=== PATIENT | female | born 1990 | race African-American/Black ===

== ENCOUNTER 2020-10-18 12:07 | Inpatient (IN) | payer MEDICAID, OTHER ==
[~2020-10-18] VITALS: Ht 167.6 cm; Wt 121.8 kg
[2020-10-18 13:22] LABS: BASOPHILS % (AUTO) 0.5 % (0.0-2.0); EOSINOPHILS % (AUTO) 0.8 % (1.0-6.0); HEMATOCRIT 35.3 % (36-46); HEMOGLOBIN 11.8 g/dL (12.0-16.0); LYMPHOCYTES # (AUTO) 1.6 K/uL (1.0-4.8); LYMPHOCYTES % (AUTO) 22.7 % (22.0-44.0); MEAN CORPUSCULAR HEMOGLOBIN 30.9 pg (26.0-34.0); MEAN CORPUSCULAR HGB CONC 33.6 G/dL (31.0-37.0); MEAN CORPUSCULAR VOLUME 92 fL (80-100); MONOCYTES # (AUTO) 0.7 K/uL (0.1-1.0); MONOCYTES % (AUTO) 9.1 % (2.0-9.0); NEUTROPHILS # (AUTO) 4.8 K/uL (1.8-7.7); NEUTROPHILS % (AUTO) 66.9 % (40.0-70.0); PLATELET COUNT (AUTO) 356 K/uL (150-450); RED BLOOD CELL COUNT(AUTO) 3.84 MIL/uL (4.00-5.20); RED CELL DISTRIBUTION WIDTH 13.7 % (11.5-14.5)
[2020-10-18] MEDS ORDERED: ALBU8HFA IH (13:22)
[2020-10-18] MEDS ORDERED: SERT50TA12 PO (13:22)
[2020-10-18] MEDS ORDERED: OXCA300T57 PO (13:22)
[2020-10-18] MEDS ORDERED: METF-960 PO (13:22)
[2020-10-18] MEDS ORDERED: ZIPR40CA2 PO (13:22)
[2020-10-18] MEDS ORDERED: ACET325S20 PR (13:22)
[2020-10-18 13:30] LABS: ANION GAP 9 mmol/L (8-16); CALCIUM, TOTAL 9.3 mg/dL (8.8-10.5); CARBON DIOXIDE 27 mmol/L (22-29); CHLORIDE 100 mmol/L (98-107); CREATININE 0.77 mg/dL (0.60-1.30); GLOMERULAR FILTR. RATE CALC > 60 mL/min (>60); GLUCOSE,RANDOM 96 mg/dL (70-110); POTASSIUM 3.6 mmol/L (3.5-5.1); SODIUM SERUM 136 mmol/L (136-145); UREA NITROGEN, BLOOD 9 mg/dL (7-18)
[2020-10-18 13:36] LABS: ALANINE AMINOTRANSFERASE 74 U/L (12-78); ALBUMIN 3.9 g/dL (3.4-5.0); ALKALINE PHOSPHATASE 70 U/L (46-116); ASPARTATE AMINOTRANSFERASE 28 U/L (15-37); BILIRUBIN,TOTAL 0.4 mg/dL (0.1-1.0); TOTAL PROTEIN, SERUM 7.6 g/dL (6.4-8.2)
[2020-10-18 13:54] LABS: HCG,QUANTITATIVE 1 mIU/mL (0-6)
[2020-10-18] MEDS ORDERED: HALOPERIDOL LACTATE 5 MG/ML VIAL IM ONE (14:30)
[2020-10-18] MEDS ORDERED: LORazepam 2 MG/ML VIAL IM ONE (14:30)
[2020-10-18] MEDS ORDERED: DiphenhydrAMINE HCL 50 MG/ML VIAL IM ONE (14:30)
[2020-10-18] MEDS ORDERED: ACETAMINOPHEN 325 MG TABLET PO PRN ×2 (15:00→15:15)
[2020-10-18] MEDS ORDERED: ONDANSETRON HCL 4 MG/2 ML VIAL IVP PRN ×2 (15:00→15:15)
[2020-10-18] MEDS ORDERED: 0.9% SODIUM CHLORIDE 10 ML SYRINGE IVP PRN ×2 (15:00→15:15)
[2020-10-18] MEDS ORDERED: DEXTROSE 50%-WATER 25 GM/50 ML SYRINGE IVP PRN (15:15)
[2020-10-18] MEDS ORDERED: MAGNESIUM HYDROXIDE SUSPENSION 30 ML UDCUP PO PRN (15:15)
[2020-10-18] MEDS ORDERED: ALBUTEROL SULFATE 2.5 MG/0.5 ML NEB SOLUTION NEB PRN (15:15)
[2020-10-18] MEDS: PANTOPRAZOLE SODIUM 40 MG DR TABLET PO SCH (15:15)
[2020-10-18] MEDS ORDERED: BISACODYL 10 MG RECTAL RECTAL SUPPOSITORY PR PRN (15:15)
[2020-10-18] MEDS ORDERED: IPRATROPIUM BROMIDE 0.5 MG/2.5 ML NEB SOLUTION NEB PRN (15:15)
[2020-10-18] MEDS ORDERED: INSULIN LISPRO 100 UNITS/ML SQ PRN (15:15)
[2020-10-18 17:15] VITALS: BP 114/73
[2020-10-18 18:07] LABS: GLUCOMETER DEV NAME(LOC) 6N.2; GLUCOSE,POINT OF CARE 86 MG/DL (70-110)
[2020-10-19 05:02] VITALS: BP 124/66
[2020-10-19 07:33] LABS: BASOPHILS % (AUTO) 0.6 % (0.0-2.0); EOSINOPHILS % (AUTO) 2.7 % (1.0-6.0); HEMATOCRIT 35.1 % (36-46); HEMOGLOBIN 11.7 g/dL (12.0-16.0); LYMPHOCYTES # (AUTO) 2.2 K/uL (1.0-4.8); LYMPHOCYTES % (AUTO) 35.9 % (22.0-44.0); MEAN CORPUSCULAR HEMOGLOBIN 31.1 pg (26.0-34.0); MEAN CORPUSCULAR HGB CONC 33.4 G/dL (31.0-37.0); MEAN CORPUSCULAR VOLUME 93 fL (80-100); MONOCYTES # (AUTO) 0.6 K/uL (0.1-1.0); MONOCYTES % (AUTO) 10.1 % (2.0-9.0); NEUTROPHILS # (AUTO) 3.1 K/uL (1.8-7.7); NEUTROPHILS % (AUTO) 50.7 % (40.0-70.0); PLATELET COUNT (AUTO) 349 K/uL (150-450); RED BLOOD CELL COUNT(AUTO) 3.77 MIL/uL (4.00-5.20)
[2020-10-19 07:47] LABS: GLUCOMETER DEV NAME(LOC) 6S.1; GLUCOSE,POINT OF CARE 73 MG/DL (70-110)
[2020-10-19 07:54] LABS: ANION GAP 9 mmol/L (8-16); CALCIUM, TOTAL 8.8 mg/dL (8.8-10.5); CARBON DIOXIDE 27 mmol/L (22-29); CHLORIDE 102 mmol/L (98-107); CREATININE 0.56 mg/dL (0.60-1.30); GLOMERULAR FILTR. RATE CALC > 60 mL/min (>60); GLUCOSE,RANDOM 76 mg/dL (70-110); POTASSIUM 3.8 mmol/L (3.5-5.1); SODIUM SERUM 138 mmol/L (136-145); UREA NITROGEN, BLOOD 8 mg/dL (7-18)
[2020-10-19 08:27] VITALS: BP 113/57
[2020-10-19] MEDS: PANTOPRAZOLE SODIUM 40 MG DR TABLET PO SCH (08:38)
[2020-10-19 13:06] LABS: GLUCOMETER DEV NAME(LOC) 6S.1; GLUCOSE,POINT OF CARE 76 MG/DL (70-110)
[2020-10-19] MEDS: SERTRALINE HCL 50 MG TABLET PO SCH (15:03)
[2020-10-19] MEDS: OXcarbazepine 300 MG TABLET PO SCH ×2 (15:03→19:59)
[2020-10-19] MEDS: ZIPRASIDONE HCL 40 MG CAPSULE PO SCH (17:35)
[2020-10-19 19:44] VITALS: BP 122/73
[2020-10-19 20:49] LABS: GLUCOMETER DEV NAME(LOC) 6N.2; GLUCOSE,POINT OF CARE 99 MG/DL (70-110)
[2020-10-20 04:45] VITALS: BP 115/60
[2020-10-20 07:26] LABS: GLUCOMETER DEV NAME(LOC) 6S.1; GLUCOSE,POINT OF CARE 91 MG/DL (70-110)
[2020-10-20] MEDS: SERTRALINE HCL 50 MG TABLET PO SCH (08:07)
[2020-10-20] MEDS: ZIPRASIDONE HCL 40 MG CAPSULE PO SCH (08:07)
[2020-10-20] MEDS: OXcarbazepine 300 MG TABLET PO SCH ×2 (08:07→19:38)
[2020-10-20] MEDS: PANTOPRAZOLE SODIUM 40 MG DR TABLET PO SCH (08:07)
[2020-10-20 08:12] VITALS: BP 141/82
[2020-10-20 11:48] LABS: GLUCOMETER DEV NAME(LOC) 6S.1; GLUCOSE,POINT OF CARE 84 MG/DL (70-110)
[2020-10-20 16:03] VITALS: BP 131/86
[2020-10-20 17:07] LABS: GLUCOMETER DEV NAME(LOC) 6S.1; GLUCOSE,POINT OF CARE 98 MG/DL (70-110)
[2020-10-20 19:28] VITALS: BP 119/58
[2020-10-20] MEDS: RisperiDONE 3 MG TABLET PO SCH (19:38)
[2020-10-21 05:43] VITALS: BP 115/58
[2020-10-21 07:17] LABS: GLUCOMETER DEV NAME(LOC) 6S.1; GLUCOSE,POINT OF CARE 114 MG/DL (70-110)
[2020-10-21 07:17] LABS: GLUCOMETER DEV NAME(LOC) 6S.1; GLUCOSE,POINT OF CARE 94 MG/DL (70-110)
[2020-10-21 07:23] VITALS: BP 122/70
[2020-10-21] MEDS: RisperiDONE 3 MG TABLET PO SCH ×2 (08:07→19:54)
[2020-10-21] MEDS: OXcarbazepine 300 MG TABLET PO SCH ×2 (08:07→19:54)
[2020-10-21] MEDS: SERTRALINE HCL 50 MG TABLET PO SCH (08:07)
[2020-10-21] MEDS: PANTOPRAZOLE SODIUM 40 MG DR TABLET PO SCH (08:07)
[2020-10-21 15:16] VITALS: BP 124/64
[2020-10-21 19:58] VITALS: BP 117/62
[2020-10-21 20:15] LABS: GLUCOMETER DEV NAME(LOC) 6S.1; GLUCOSE,POINT OF CARE 101 MG/DL (70-110)
[2020-10-21 20:15] LABS: GLUCOMETER DEV NAME(LOC) 6S.1; GLUCOSE,POINT OF CARE 90 MG/DL (70-110)
[2020-10-21 21:00] VITALS: BP 123/70
[2020-10-22 07:27] VITALS: BP 114/61
[2020-10-22] MEDS: SERTRALINE HCL 50 MG TABLET PO SCH (07:54)
[2020-10-22] MEDS: RisperiDONE 3 MG TABLET PO SCH ×2 (07:54→20:32)
[2020-10-22] MEDS: OXcarbazepine 300 MG TABLET PO SCH ×2 (07:54→20:32)
[2020-10-22] MEDS: PANTOPRAZOLE SODIUM 40 MG DR TABLET PO SCH (07:54)
[2020-10-22 15:03] VITALS: BP 122/64
[2020-10-22 19:06] VITALS: BP 128/78
[2020-10-23 05:56] VITALS: BP 120/76
[2020-10-23 07:24] VITALS: BP 124/72
[2020-10-23] MEDS: PANTOPRAZOLE SODIUM 40 MG DR TABLET PO SCH (08:24)
[2020-10-23] MEDS: SERTRALINE HCL 50 MG TABLET PO SCH (08:24)
[2020-10-23] MEDS: OXcarbazepine 300 MG TABLET PO SCH ×2 (08:24→20:29)
[2020-10-23] MEDS: RisperiDONE 3 MG TABLET PO SCH ×2 (08:24→20:29)
[2020-10-23 15:02] VITALS: BP 128/74
[2020-10-23 19:05] VITALS: BP 120/74
[2020-10-24] MEDS: SERTRALINE HCL 50 MG TABLET PO SCH (08:18)
[2020-10-24] MEDS: OXcarbazepine 300 MG TABLET PO SCH ×2 (08:18→20:12)
[2020-10-24] MEDS: RisperiDONE 3 MG TABLET PO SCH ×2 (08:18→20:12)
[2020-10-24] MEDS: PANTOPRAZOLE SODIUM 40 MG DR TABLET PO SCH (08:19)
[2020-10-24 08:20] VITALS: BP 144/76
[2020-10-24] MEDS: DOCUSATE SODIUM 100 MG CAPSULE PO PRN (08:27)
[2020-10-24 19:34] VITALS: BP 101/71
[2020-10-25 05:29] VITALS: BP 137/79
[2020-10-25 07:27] VITALS: BP 130/73
[2020-10-25] MEDS: RisperiDONE 3 MG TABLET PO SCH ×2 (08:06→19:49)
[2020-10-25] MEDS: PANTOPRAZOLE SODIUM 40 MG DR TABLET PO SCH (08:06)
[2020-10-25] MEDS: SERTRALINE HCL 50 MG TABLET PO SCH (08:06)
[2020-10-25] MEDS: OXcarbazepine 300 MG TABLET PO SCH ×2 (08:06→19:49)
[2020-10-25 15:56] VITALS: BP 128/76
[2020-10-25 19:41] VITALS: BP 108/76
[2020-10-26 05:28] VITALS: BP 96/51
[2020-10-26] MEDS: RisperiDONE 3 MG TABLET PO SCH ×2 (08:33→20:04)
[2020-10-26] MEDS: PANTOPRAZOLE SODIUM 40 MG DR TABLET PO SCH (08:33)
[2020-10-26] MEDS: OXcarbazepine 300 MG TABLET PO SCH ×2 (08:33→20:04)
[2020-10-26] MEDS: SERTRALINE HCL 50 MG TABLET PO SCH (08:33)
[2020-10-26 16:01] VITALS: BP 126/77
[2020-10-26 20:05] VITALS: BP 95/51
[2020-10-27 04:45] VITALS: BP 115/72
[2020-10-27 07:16] VITALS: BP 98/51
[2020-10-27] MEDS: RisperiDONE 3 MG TABLET PO SCH ×2 (08:05→19:43)
[2020-10-27] MEDS: OXcarbazepine 300 MG TABLET PO SCH ×2 (08:05→19:42)
[2020-10-27] MEDS: SERTRALINE HCL 50 MG TABLET PO SCH (08:05)
[2020-10-27] MEDS: PANTOPRAZOLE SODIUM 40 MG DR TABLET PO SCH (08:05)
[2020-10-27 19:29] VITALS: BP 110/58
[2020-10-28 03:07] VITALS: BP 101/52
[2020-10-28] MEDS: RisperiDONE 3 MG TABLET PO SCH ×2 (09:12→20:10)
[2020-10-28] MEDS: PANTOPRAZOLE SODIUM 40 MG DR TABLET PO SCH (09:12)
[2020-10-28] MEDS: SERTRALINE HCL 50 MG TABLET PO SCH (09:12)
[2020-10-28] MEDS: OXcarbazepine 300 MG TABLET PO SCH ×2 (09:12→20:10)
[2020-10-28 20:01] VITALS: BP 101/56
[2020-10-28] MEDS ORDERED: LORazepam 0.5 MG TABLET PO ONE (23:15)
[2020-10-29 05:27] VITALS: BP 132/79
[2020-10-29 08:20] VITALS: BP 106/61
[2020-10-29] MEDS: SERTRALINE HCL 50 MG TABLET PO SCH (08:48)
[2020-10-29] MEDS: RisperiDONE 3 MG TABLET PO SCH ×2 (08:48→21:09)
[2020-10-29] MEDS: PANTOPRAZOLE SODIUM 40 MG DR TABLET PO SCH (08:48)
[2020-10-29] MEDS: OXcarbazepine 300 MG TABLET PO SCH ×2 (08:48→21:09)
[2020-10-29 20:47] VITALS: BP 135/82
[2020-10-30 07:27] VITALS: BP 119/63
[2020-10-30] MEDS: SERTRALINE HCL 50 MG TABLET PO SCH (09:12)
[2020-10-30] MEDS: OXcarbazepine 300 MG TABLET PO SCH ×2 (09:12→21:02)
[2020-10-30] MEDS: PANTOPRAZOLE SODIUM 40 MG DR TABLET PO SCH (09:12)
[2020-10-30] MEDS: RisperiDONE 3 MG TABLET PO SCH ×2 (09:13→21:02)
[2020-10-30] MEDS: ChlorproMAZINE HCL 50 MG TABLET PO SCH ×2 (11:26→21:02)
[2020-10-30 19:25] VITALS: BP 109/50
[2020-10-31 05:05] VITALS: BP 106/63
[2020-10-31] MEDS: SERTRALINE HCL 50 MG TABLET PO SCH (08:29)
[2020-10-31] MEDS: OXcarbazepine 300 MG TABLET PO SCH ×2 (08:29→20:24)
[2020-10-31] MEDS: ChlorproMAZINE HCL 50 MG TABLET PO SCH ×2 (08:29→20:24)
[2020-10-31] MEDS: PANTOPRAZOLE SODIUM 40 MG DR TABLET PO SCH (08:29)
[2020-10-31] MEDS: RisperiDONE 3 MG TABLET PO SCH ×2 (08:30→20:24)
[2020-10-31 08:47] VITALS: BP 96/47
[2020-10-31 19:39] VITALS: BP 117/68
[2020-10-31] MEDS: DOCUSATE SODIUM 100 MG CAPSULE PO PRN (20:29)
[2020-11-01 05:36] VITALS: BP 121/70
[2020-11-01 07:42] VITALS: BP 96/59
[2020-11-01] MEDS: ChlorproMAZINE HCL 50 MG TABLET PO SCH ×2 (08:38→20:07)
[2020-11-01] MEDS: OXcarbazepine 300 MG TABLET PO SCH ×2 (08:39→20:07)
[2020-11-01] MEDS: RisperiDONE 3 MG TABLET PO SCH ×2 (08:39→20:07)
[2020-11-01] MEDS: PANTOPRAZOLE SODIUM 40 MG DR TABLET PO SCH (08:39)
[2020-11-01] MEDS: SERTRALINE HCL 50 MG TABLET PO SCH (08:39)
[2020-11-01 20:17] VITALS: BP 114/69
[2020-11-02 07:36] VITALS: BP 105/68
[2020-11-02] MEDS: OXcarbazepine 300 MG TABLET PO SCH ×2 (08:18→19:57)
[2020-11-02] MEDS: PANTOPRAZOLE SODIUM 40 MG DR TABLET PO SCH (08:18)
[2020-11-02] MEDS: ChlorproMAZINE HCL 50 MG TABLET PO SCH ×2 (08:18→19:57)
[2020-11-02] MEDS: RisperiDONE 3 MG TABLET PO SCH ×2 (08:18→19:57)
[2020-11-02] MEDS: SERTRALINE HCL 50 MG TABLET PO SCH (08:18)
[2020-11-03 04:00] VITALS: BP 104/66
[2020-11-03 08:04] VITALS: BP 98/61
[2020-11-03] MEDS: RisperiDONE 3 MG TABLET PO SCH ×2 (08:34→19:56)
[2020-11-03] MEDS: ChlorproMAZINE HCL 50 MG TABLET PO SCH ×2 (08:35→19:56)
[2020-11-03] MEDS: PANTOPRAZOLE SODIUM 40 MG DR TABLET PO SCH (08:36)
[2020-11-03] MEDS: OXcarbazepine 300 MG TABLET PO SCH ×2 (08:36→19:56)
[2020-11-03] MEDS: SERTRALINE HCL 50 MG TABLET PO SCH (08:37)
[2020-11-03 15:38] LABS: COVID AG,FIA SOURCE NASOPHARYNGEAL
[2020-11-03 20:10] VITALS: BP 120/56
[2020-11-04 05:32] VITALS: BP 110/65
[2020-11-04] MEDS: OXcarbazepine 300 MG TABLET PO SCH (08:35)
[2020-11-04] MEDS: SERTRALINE HCL 50 MG TABLET PO SCH (08:35)
[2020-11-04] MEDS: RisperiDONE 3 MG TABLET PO SCH (08:35)
[2020-11-04] MEDS: ChlorproMAZINE HCL 50 MG TABLET PO SCH (08:35)
[2020-11-04] MEDS: PANTOPRAZOLE SODIUM 40 MG DR TABLET PO SCH (08:35)
[2020-11-04] MEDS: DOCUSATE SODIUM 100 MG CAPSULE PO PRN (08:51)
[2020-11-04 09:36] VITALS: BP 115/61
[2020-11-04] MEDS ORDERED: CHLO50TA41 PO (12:54)
[2020-11-04] MEDS ORDERED: RISP3TAB35 PO (12:55)
== END 2020-11-04 13:40 | DRG 885 ==
LOC: EMS 12:11 → 6N 15:03 → 6S 18:41
PROVIDERS: ADMIT Internal Medicine; ATTEND Internal Medicine
DX: F25.0 Schizoaffective disorder, bipolar type (principal); R45.851 Suicidal ideations; E11.9 Type 2 diabetes mellitus without complications; F41.9 Anxiety disorder, unspecified; F15.90 Other stimulant use, unspecified, uncomplicated; Z81.8 Family history of other mental and behavioral disorders; F17.210 Nicotine dependence, cigarettes, uncomplicated; Z79.899 Other long term (current) drug therapy; Z20.828 Contact with and (suspected) exposure to other viral communicable diseases
CPT/HCPCS: 83036; 87426; 94640; G0480; J1200; J1630; J2060

== ENCOUNTER 2020-11-13 01:21 | Inpatient (IN) | payer OTHER ==
[~2020-11-13] VITALS: Ht 167.6 cm; Wt 136.4 kg
[~2020-11-13 01:21] MED LIST: CHLO50TA41 PO; OXCA300T57 PO; RISP3TAB35 PO; SERT50TA12 PO
[2020-11-13 03:18] LABS: COVID AG,FIA SOURCE NASOPHARYNGEAL
[2020-11-13 04:33] LABS: AMPHET/METH SCREEN,URINE NEGATIVE (NEGATIVE); BARBITURATE SCREEN, URINE NEGATIVE (NEGATIVE); BENZODIAZEPINES SCREEN,URINE NEGATIVE (NEGATIVE); CANNABINOID SCREEN,URINE NEGATIVE (NEGATIVE); COCAINE SCREEN,URINE NEGATIVE (NEGATIVE); METHADONE SCREEN, URINE NEGATIVE (NEGATIVE); OPIATE SCREEN,URINE NEGATIVE (NEGATIVE)
[2020-11-13 04:34] LABS: PHENCYCLIDINE SCREEN,URINE NEGATIVE (NEGATIVE)
[2020-11-13] MEDS ORDERED: 0.9% SODIUM CHLORIDE 10 ML SYRINGE IVP PRN (04:45)
[2020-11-13] MEDS ORDERED: ACETAMINOPHEN 325 MG TABLET PO PRN ×2 (04:45→05:30)
[2020-11-13] MEDS ORDERED: ONDANSETRON HCL 4 MG/2 ML VIAL IVP PRN ×2 (04:45→05:30)
[2020-11-13] MEDS ORDERED: DEXTROSE 50%-WATER 25 GM/50 ML SYRINGE IVP PRN (05:45)
[2020-11-13] MEDS ORDERED: INSULIN LISPRO 100 UNITS/ML SQ PRN (05:45)
[2020-11-13 06:28] VITALS: BP 152/96
[2020-11-13 07:02] LABS: GLUCOMETER DEV NAME(LOC) 6S.1; GLUCOSE,POINT OF CARE 92 MG/DL (70-110)
[2020-11-13] MEDS: RisperiDONE 3 MG TABLET PO SCH ×2 (08:17→21:08)
[2020-11-13] MEDS: ChlorproMAZINE HCL 50 MG TABLET PO SCH ×2 (08:17→21:08)
[2020-11-13] MEDS ORDERED: SERTRALINE HCL 50 MG TABLET PO SCH (09:00)
[2020-11-13] MEDS: ENOXAPARIN SODIUM 40 MG/0.4 ML PF SYRINGE SQ SCH (09:00)
[2020-11-13] MEDS ORDERED: OXcarbazepine 300 MG TABLET PO SCH (09:00)
[2020-11-13 09:49] VITALS: BP 149/95
[2020-11-13 13:13] LABS: GLUCOMETER DEV NAME(LOC) 6S.1; GLUCOSE,POINT OF CARE 74 MG/DL (70-110)
[2020-11-13] MEDS ORDERED: INFLUENZA VIRUS VACCINE QVS 2020-21 (6MO+)/PF 60 MCG/0.5 ML SYRINGE IM ONE (18:30)
[2020-11-13 19:52] VITALS: BP 113/65
[2020-11-13] MEDS: OXcarbazepine 300 MG TABLET PO SCH (21:08)
[2020-11-14 06:04] VITALS: BP 114/64
[2020-11-14] MEDS: ENOXAPARIN SODIUM 40 MG/0.4 ML PF SYRINGE SQ SCH (09:00)
[2020-11-14] MEDS: ChlorproMAZINE HCL 50 MG TABLET PO SCH ×2 (09:13→21:16)
[2020-11-14] MEDS: OXcarbazepine 300 MG TABLET PO SCH ×2 (09:13→21:16)
[2020-11-14] MEDS: RisperiDONE 3 MG TABLET PO SCH ×2 (09:13→21:16)
[2020-11-14 10:23] VITALS: BP 135/78
[2020-11-14 11:55] LABS: GLUCOMETER DEV NAME(LOC) 6S.1; GLUCOSE,POINT OF CARE 110 MG/DL (70-110)
[2020-11-14 15:43] VITALS: BP 103/59
[2020-11-14 19:38] VITALS: BP 103/58
[2020-11-14 22:13] LABS: GLUCOMETER DEV NAME(LOC) 6S.1; GLUCOSE,POINT OF CARE 81 MG/DL (70-110)
[2020-11-15 05:21] VITALS: BP 110/60
[2020-11-15 06:07] VITALS: BP 122/70
[2020-11-15 08:15] VITALS: BP 95/53
[2020-11-15] MEDS: OXcarbazepine 300 MG TABLET PO SCH ×2 (09:15→20:26)
[2020-11-15] MEDS: ChlorproMAZINE HCL 50 MG TABLET PO SCH ×2 (09:15→20:26)
[2020-11-15] MEDS: RisperiDONE 3 MG TABLET PO SCH ×2 (09:15→20:26)
[2020-11-15] MEDS: ENOXAPARIN SODIUM 40 MG/0.4 ML PF SYRINGE SQ SCH (09:16)
[2020-11-15] MEDS ORDERED: LORazepam 2 MG/ML VIAL IM ONE (15:00)
[2020-11-15] MEDS ORDERED: ChlorproMAZINE HCL 50 MG/2 ML AMP IM ONE (15:00)
[2020-11-15] MEDS ORDERED: DiphenhydrAMINE HCL 50 MG/ML VIAL IM ONE (15:00)
[2020-11-15 18:04] LABS: GLUCOMETER DEV NAME(LOC) 6S.1; GLUCOSE,POINT OF CARE 84 MG/DL (70-110)
[2020-11-15 20:42] VITALS: BP 139/82
[2020-11-16 07:40] VITALS: BP 121/70
[2020-11-16] MEDS: OXcarbazepine 300 MG TABLET PO SCH ×2 (08:32→20:07)
[2020-11-16] MEDS: ENOXAPARIN SODIUM 40 MG/0.4 ML PF SYRINGE SQ SCH ×2 (08:32→08:36)
[2020-11-16] MEDS: RisperiDONE 3 MG TABLET PO SCH ×2 (08:32→20:07)
[2020-11-16] MEDS: ChlorproMAZINE HCL 50 MG TABLET PO SCH ×2 (08:32→20:07)
[2020-11-16 19:55] LABS: GLUCOMETER DEV NAME(LOC) 6N.2; GLUCOSE,POINT OF CARE 95 MG/DL (70-110)
[2020-11-16 20:32] VITALS: BP 133/76
[2020-11-17 00:56] LABS: GLUCOMETER DEV NAME(LOC) 6S.1; GLUCOSE,POINT OF CARE 112 MG/DL (70-110)
[2020-11-17 08:00] VITALS: BP 102/67
[2020-11-17] MEDS: OXcarbazepine 300 MG TABLET PO SCH ×2 (08:12→21:07)
[2020-11-17] MEDS: ChlorproMAZINE HCL 50 MG TABLET PO SCH ×2 (08:12→21:07)
[2020-11-17] MEDS: RisperiDONE 3 MG TABLET PO SCH ×2 (08:12→21:07)
[2020-11-17] MEDS: ENOXAPARIN SODIUM 40 MG/0.4 ML PF SYRINGE SQ SCH (08:16)
[2020-11-17 20:14] VITALS: BP 139/73
[2020-11-18 04:09] VITALS: BP 150/89
[2020-11-18] MEDS: RisperiDONE 3 MG TABLET PO SCH ×2 (08:25→19:47)
[2020-11-18] MEDS: ChlorproMAZINE HCL 50 MG TABLET PO SCH ×3 (08:25→19:47)
[2020-11-18] MEDS: OXcarbazepine 300 MG TABLET PO SCH ×2 (08:25→19:47)
[2020-11-18 08:52] VITALS: BP 148/84
[2020-11-18] MEDS: ENOXAPARIN SODIUM 40 MG/0.4 ML PF SYRINGE SQ SCH (09:00)
[2020-11-18 19:55] VITALS: BP 139/73
[2020-11-19] MEDS: OXcarbazepine 300 MG TABLET PO SCH ×2 (09:10→20:38)
[2020-11-19] MEDS: RisperiDONE 3 MG TABLET PO SCH ×2 (09:10→20:38)
[2020-11-19] MEDS: ChlorproMAZINE HCL 50 MG TABLET PO SCH ×2 (09:10→20:39)
[2020-11-19] MEDS: ENOXAPARIN SODIUM 40 MG/0.4 ML PF SYRINGE SQ SCH (09:10)
[2020-11-19 09:11] VITALS: BP 99/54
[2020-11-19 20:16] VITALS: BP 113/60
[2020-11-19 23:29] LABS: GLUCOMETER DEV NAME(LOC) 6N.2; GLUCOSE,POINT OF CARE 104 MG/DL (70-110)
[2020-11-19 23:29] LABS: GLUCOMETER DEV NAME(LOC) 6N.2; GLUCOSE,POINT OF CARE 104 MG/DL (70-110)
[2020-11-20 04:10] VITALS: BP 137/72
[2020-11-20 08:29] VITALS: BP 100/56
[2020-11-20] MEDS: OXcarbazepine 300 MG TABLET PO SCH (08:37)
[2020-11-20] MEDS: ChlorproMAZINE HCL 50 MG TABLET PO SCH (08:37)
[2020-11-20] MEDS: RisperiDONE 3 MG TABLET PO SCH (08:37)
[2020-11-20] MEDS: ENOXAPARIN SODIUM 40 MG/0.4 ML PF SYRINGE SQ SCH (08:38)
[2020-11-20] MEDS ORDERED: ENOX40DI9 SQ (10:54)
[2020-11-20] MEDS ORDERED: ACET-2865 PO (10:54)
[2020-11-20] MEDS ORDERED: INSU100V SQ (10:55)
[2020-11-20 14:35] LABS: GLUCOMETER DEV NAME(LOC) 6N.2; GLUCOSE,POINT OF CARE 98 MG/DL (70-110)
== END 2020-11-20 16:55 | DRG 885 ==
LOC: EMS 01:26 → 6S 03:22
PROVIDERS: ADMIT Internal Medicine; ATTEND Internal Medicine
DX: F25.0 Schizoaffective disorder, bipolar type (principal); R45.851 Suicidal ideations; Z68.42 Body mass index [BMI] 45.0-49.9, adult; Z20.828 Contact with and (suspected) exposure to other viral communicable diseases; E66.01 Morbid (severe) obesity due to excess calories; E11.9 Type 2 diabetes mellitus without complications; F17.210 Nicotine dependence, cigarettes, uncomplicated; Z91.19 Patient's noncompliance with other medical treatment and regimen; Z81.8 Family history of other mental and behavioral disorders; Z28.21 Immunization not carried out because of patient refusal
CPT/HCPCS: 87426; J1200; J1650; J2060; J3230

== ENCOUNTER 2021-08-05 09:47 | Emergency (ER) | payer OTHER ==
[~2021-08-05] VITALS: Ht 167.6 cm; Wt 127.3 kg
[~2021-08-05 09:47] MED LIST changes: +ACET-2247 PO; +CHLO25TA69 PO; -CHLO50TA41 PO; -SERT50TA12 PO
[2021-08-05 10:32] VITALS: BP 134/76
[2021-08-05] MEDS ORDERED: LORazepam 2 MG TABLET PO ONE (11:15)
[2021-08-05] MEDS ORDERED: RisperiDONE 1 MG TABLET PO ONE (11:15)
[2021-08-05 12:43] LABS: APPEARANCE,URINE CLOUDY (CLEAR); BILIRUBIN,URINE NEGATIVE (NEGATIVE); GLUCOSE, URINE (UA) NEGATIVE (NEGATIVE); KETONES,URINE NEGATIVE (NEGATIVE); LEUKOCYTE ESTERASE ,URINE LARGE (NEGATIVE); NITRATE,URINE NEGATIVE (NEGATIVE); OCCULT BLOOD,URINE SMALL (NEGATIVE); PROTEIN,URINE TRACE (NEGATIVE); UROBILINOGEN,URINE 0.2 mg/dL (<=1.0)
[2021-08-05 12:59] LABS: BACTERIA,URINE Few /HPF (None Seen); RBC,URINE 0-2 /HPF (0-2); SQUAMOUS EPITHELIAL CELL,UR Few /LPF (None Seen)
[2021-08-05] MEDS ORDERED: CefTRIAXone SODIUM 1 GM/VIAL IM ONE (13:30)
[2021-08-05] MEDS ORDERED: LIDOCAINE/PF 1% 2 ML VIAL IM ONE (13:30)
[2021-08-05] MEDS ORDERED: AZITHROMYCIN 500 MG TABLET PO ONE (13:30)
== END 2021-08-05 14:25 | disposition home or self-care (01) ==
LOC: EMS 09:49
DX: F15.10 Other stimulant abuse, uncomplicated (principal); F17.210 Nicotine dependence, cigarettes, uncomplicated; F12.90 Cannabis use, unspecified, uncomplicated; E11.9 Type 2 diabetes mellitus without complications; F20.9 Schizophrenia, unspecified; R82.90 Unspecified abnormal findings in urine
CPT/HCPCS: 81001; 82962; 87077; 87086; 99283; J0696; J3490; Q9967